=== PATIENT | male | born 1960 | race Caucasian/White ===

== ENCOUNTER 2021-12-19 08:55 | Emergency (ER) | payer OTHER, SELFPAY ==
[2021-12-19 08:56] VITALS: BP 237/99; BP 264/108; PULSE 92; RESP 16; RESP 18; TEMP 36.6; O2SAT 100; O2SAT 99; BMI 27.6
--- NOTE | 2021-12-19 09:30 | EKG12_ITS ---
Test Reason : HYPERTENSON Blood Pressure : / mmHG Vent. Rate : 083 BPM Atrial Rate : 083 BPM P-R Int : 140 ms QRS Dur : 082 ms QT Int : 362 ms P-R-T Axes : 055 028 040 degrees QTc Int : 425 ms Normal sinus rhythm Normal ECG Confirmed by JULIA HOUSE, MARKY ([id number]), visual effects editor GEO CARBAJAL ([id number]) on 12/20/2021 9:41:12 AM Referred By: COLLEEN Confirmed By:MARKY DUMONT MD
--- NOTE | 2021-12-19 09:36 | NURSING ---
NO OLD EKGS
[2021-12-19] MEDS: Labetalol (Prefilled) 20 MG/4 ML 10 MG IV (09:53)
[2021-12-19 10:09] LABS: Absolute Lymphocyte Count 0.84 X10^3/uL (0.83-4.51); Absolute Neutrophil Count 2.7 X10^3/uL (2.0-7.7); Basophil# 0.04 X10^3/uL; Hematocrit 45.8 % (40-54); Hemoglobin 15.7 g/dL (13.0-16.5); Lymphocyte # 0.84 X10^3/ul (0.83-4.51); Lymphocyte % 21.3 % (19-41); Mean Corp Hgb Conc 34.3 g/dL (32-36); Mean Corpuscular Hgb 31.8 pg (27.0-32.0); Mean Corpuscular Volume 92.9 fL (80-94); Mean Platelet Vol. 10.3 fl (6.2-12.0); Monocyte# 0.36 X10^3/uL; Monocyte% 9.1 % (0-10); NRBC Flagged by Analyzer 0 % (0-5); Neutrophil # 2.69 X10^3/uL (2.7-7.7); Neutrophil % 68.1 % (47-70); Platelet Count 187 K/mm3 (150-450); RBC Distribution Width CV 13.1 % (11.6-14.6); Red Blood Count 4.93 M/mm3 (4.6-6.2)
[2021-12-19 10:24] LABS: Anion Gap 5 (5-15); BUN 21 mg/dL (7-18); BUN/Creat Ratio 18.6 RATIO (10-20); Calcium,Total 10.1 mg/dL (8.5-10.1); Chloride 110 mmol/L (98-107); Creatinine, Serum 1.13 mg/dL (0.70-1.30); EST Glomerular Filtration Rate 70 mL/min (>60); Est Glom Filt Rate - Afr Amer 85 mL/min (>60); Estimated Creatinine Clearance 68.65 ml/min; Glucose 108 mg/dL (74-106); Potassium 4.7 mmol/L (3.5-5.1); Sodium Level 141 mmol/L (136-145)
[2021-12-19 10:25] VITALS: BP 190/101; PULSE 77
--- NOTE | 2021-12-19 10:38 | EDS_ITS ---
HPI History of Present Illness Chief Complaint: Hypertension Informant: patient Narrative Narrative: Patient is a 61-year-old male with history of hypertension, hyperparathyroidism and BPH presenting with elevated blood pressure reading. Patient is not have any symptoms. He had a routine screening appointment where his blood pressure was found to be 240 systolic. Patient notes his blood pressures have been running higher over the past month but more like 170-190 systolic. He notes he is been exercising normally. Last year he he was taken off of his hydrochlorothiazide and his metoprolol because he was having low blood pressures. He is currently still on lisinopril 40 mg. He states has been compliant with his medications. He denies any complaints at this time. He notes he did have Covid beginning of November but had a relatively mild case. [facility] Medical History Hyperlipidemia Hyperparathyroidism Hypertension Sleep apnea Vitamin D deficiency Home Medications allopurinol 300 mg PO DAILY 12/19/21 [History Last Taken Unknown] cholecalciferol (vitamin D3) 100 mcg PO DAILY 12/19/21 [History Last Taken Unknown] lisinopril 40 mg PO DAILY 12/19/21 [History Last Taken Unknown] metoprolol tartrate 12.5 mg PO BID #30 tab 12/19/21 [Rx Last Taken Unknown] tamsulosin 0.4 mg PO DAILY 12/19/21 [History Last Taken Unknown] Allergy/AdvReac Type Severity Reaction Status Date / Time No Known Allergies Allergy Verified 12/19/21 08:58 Social History Smoking Status: Never smoker [facility] ED Constitutional Constitutional ED: Denies chills, fever(s) or malaise Eyes Eyes: Denies blurry vision or loss of vision ENT ENT ED: Denies rhinorrhea or sore throat Cardiovascular Cardiovascular: Denies chest pain or dizziness Respiratory/Chest Respiratory/Chest: Denies cough or dyspnea Gastrointestinal Gastrointestinal: Denies nausea or vomiting Genitourinary Genitourinary ED: Denies dysuria or hematuria Musculoskeletal Musculoskeletal: Denies arthralgias or myalgias Integumentary Denies rash or wounds Neurologic Neurologic: Denies focal weakness or headache(s) Psychiatric Psychiatric: Denies anxiety or behavioral changes EXAM Physical Exam Const Vital Signs: 12/19/21 08:56 12/19/21 09:12 12/19/21 10:25 Temperature 97.9 F Temperature Source Temporal Pulse Rate 92 77 Respiratory Rate 16 Respiratory Effort Normal Non-Labored Respiratory Pattern Normal Blood Pressure 237/99 H 190/101 H Blood Pressure Mean 145 130 Pulse Ox 99 Oxygen Delivery Method Room Air Positive well nourished and well developed General Appearance ED: well developed HEENT Reports TM's clear and moist mucous membranes Negative for tenderness Tympanic Membrane ED: Yes TM's clear Eyes PERRL and EOMs intact bilaterally Neck supple and no JVD Chest Wall inspection of chest normal Resp normal respiratory effort and clear to auscultation bilaterally Cardio regular rate, regular rhythm and no murmurs Rate: other Other Details: Equal pulses in all 4 extremities GI normal to inspection, nondistended, normoactive bowel sounds, non-tender and no masses Palpation: soft Back/Spine no CVA tenderness Extremity normal to inspection General Extremety ED: Negative for edema or tenderness General Extremity: Negative for edema Neuro oriented x3 and CN's II-XII intact bilaterally Sensorium / Orientation: alert Motor Exam: Negative for general weakness Psych mental status grossly normal Skin no rashes or lesions noted and no wounds MDM MDM MDM Narrative Medical decision making narrative: Patient evaluated for asymptomatic high blood pressure. Patient is quite hypertensive in the emergency room initially 264/108. However on recheck he is 140 systolic. He has a normal neurologic exam. Not having chest pain. EKG is normal. Lab work remarkable only for mild leukopenia of 4.0 which is nonspecific. He is given one dose of 10 mg IV labetalol with significant improvement of his blood pressure down to 190/101. Patient continues to be asymptomatic. Will be restarted back on his metoprolol for blood pressure control. Will follow up with his primary care doctor. At this time I do not think he requires admission for his he is symptomatic hypertension. Patient agreeable with this. He is counseled on return precautions as well as signs of hypertensive emergency. Lab Data Attestation: I reviewed the patient's lab results. Labs: Laboratory Results - last 24 hr 12/19/21 12/19/21 09:46 09:46 WBC 4.0 L RBC 4.93 Hgb 15.7 Hct 45.8 MCV 92.9 MCH 31.8 MCHC 34.3 RDW Std Deviation 45.0 H RDW Coeff of Elena 13.1 Plt Count 187 MPV 10.3 Immature Gran % (Auto) 0.500 Neut % (Auto) 68.1 Lymph % (Auto) 21.3 [place] % (Auto) 9.1 Eos % (Auto) 0.0 Baso % (Auto) 1.0 Absolute Neuts (auto) 2.7 Absolute Lymphs (auto) 0.84 Nucleated RBC % 0 Sodium 141 Potassium 4.7 Chloride 110 H Carbon Dioxide 26.0 Anion Gap 5 BUN 21 H Creatinine 1.13 Estim Creat Clear Calc 68.65 Est GFR (MDRD) Af Amer 85 Est GFR (MDRD) Non-Af 70 BUN/Creatinine Ratio 18.6 Glucose 108 H Calcium 10.1 Rhythm Strip Rhythm Strip: Sinus Rhythm Rate: 83 Ectopy: None EKG Initial EKG: Attestation: I personally reviewed and interpreted this EKG as follows: Interpretation: Sinus Rhythm Comments: Normal sinus rhythm rate of 83 Normal axis Normal intervals Normal ST segments Discharge Plan Triage Chief Complaint: Hypertension ED Provider: Kerri Olvera Dx/Rx/DC Orders Clinical Impression: Hypertension Instructions: ED Hypertension, Established Prescriptions: New metoprolol tartrate 25 mg tablet 12.5 mg PO BID Qty: 30 RF: 0 No Action tamsulosin 0.4 mg Capsule 0.4 mg PO DAILY RF: 0 allopurinol 300 mg Tablet 300 mg PO DAILY RF: 0 lisinopril 40 mg Tablet 40 mg PO DAILY RF: 0 cholecalciferol (vitamin D3) 100 mcg (4,000 unit) Tablet 100 mcg PO DAILY RF: 0 Primary Care Provider: Leon Altman Referrals: Leon Altman MD [Primary Care Provider] - Activity Restrictions/Additional Instructions: Please follow-up with your primary care doctor later this week for blood pressure check and further management of your high blood pressure. Disposition Disposition: Home, Self Care
[2021-12-19 10:56] VITALS: BP 142/97; PULSE 70; RESP 16; O2SAT 97
--- NOTE | 2021-12-20 10:50 | CASEMGMT ---
[facility] ED follow-up: Date of ER visit: 12/19/2021 Presenting ER c/o: hypertension [facility] placed call to patient's telephone number listed on demographics- patient answered. Patient reports feeling fine today though blood pressure still a bit elevated-- 191/95 and 178/94. Patient denies chest pain, headache, blurred vision, dizziness or other complaints. Reports he was able to exercise yesterday and today. Patient reports monitoring BP at home and encouraged to take log of BP readings to follow-up appointment, scheduled for tomorrow 12/21/2021 at 0900. Patient reports he has picked up his prescription medication and has been taking as instructed. Patient denies questions or concerns. -EMMA Wiseman CM
== END 2021-12-19 10:57 | disposition home or self-care (01) ==
PROVIDERS: Emergency Provider Emergency Medicine; PCP Family Medicine; Visit Provider Emergency Medicine
DX: I10 Essential (primary) hypertension (principal); G47.30 Sleep apnea, unspecified; E55.9 Vitamin D deficiency, unspecified; Z79.899 Other long term (current) drug therapy
CPT/HCPCS: 80048; 85025; 93005; 96374; 99283; A4216